=== PATIENT | female | born 1990 | race Caucasian/White ===

== ENCOUNTER 2017-07-18 23:16 | Emergency (ER) | payer BC, MEDICAID, OTHER ==
[2017-07-18] MEDS ORDERED: Albuterol/Ipratropium 3.0-0.5 MG/3 ML Neb Soln ONE (23:22)
[2017-07-18] MEDS ORDERED: Albuterol/Ipratropium 3.0-0.5 MG/3 ML Neb Soln NEB ONE (23:22)
[2017-07-18] MEDS ORDERED: Sodium Chloride 0.9% 2.5 ML Syringe FLUSH PRN (23:28)
[2017-07-18] MEDS ORDERED: Sodium Chloride 0.9% 10 ML Syringe FLUSH PRN (23:28)
[2017-07-18] MEDS ORDERED: methylPREDNISolone Sodium Succinate 125 MG/2 ML SDV IVPUSH ONE (23:28)
[2017-07-18] MEDS ORDERED: LORazepam 2 MG/ML MDV IVPUSH ONE (23:29)
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
[2017-07-18] MEDS ORDERED: Codeine/Promethazine 10-6.25 MG/5 ML Syrup 5 ML UD Cup ONE (23:57)
[2017-07-19 00:52] VITALS: BP 90/60
--- NOTE | 2017-07-19 13:16 | CR ---
EXAM DATE: 07/18/17 PATIENT'S AGE: 26 Patient: LUIS E LIN Facility: [place], [place] Site . Site : 1990 Study: XRay Chest [id number]/11/2018 12:05:41 AM Ordering Physician: Quinton Green Final Report: HISTORY: Cough and sick for about a week. Hemoptysis tonight. FINDINGS: PA and lateral chest radiographs compared 18 February 2016. The cardiac silhouette is normal. Pulmonary vasculature and williams are normal. No lobar consolidation or pleural effusion is seen. The bony structures are normal. IMPRESSION: No acute cardiopulmonary disease or infiltrate. Dictated by Edith Molina MD @ 07/19/2017 12:07:23 AM Dictated by: Edith Molina MD @ 07/19/2017 00:07:31 (Electronic Signature) Report Signed by Proxy. [email or web address]
[2017-07-19] MEDS ORDERED: Codeine/Promethazine 10-6.25 MG/5 ML Syrup 5 ML UD Cup PO ONE (23:27)
== END 2017-07-19 00:40 | disposition home or self-care (01) ==
LOC: MW.ED 23:16
DX: J20.9 Acute bronchitis, unspecified (principal); Z88.2 Allergy status to sulfonamides; F17.210 Nicotine dependence, cigarettes, uncomplicated
CPT/HCPCS: 71046; 87804; 94640; 96374; 96375; 99284; A9270; J2060; J2930; 99283

== ENCOUNTER 2018-01-01 14:08 | Emergency (ER) | payer BC ==
[2018-01-01] MEDS ORDERED: Sodium Chloride 0.9% 2.5 ML Syringe FLUSH PRN ×2 (14:28→14:29)
[2018-01-01] MEDS ORDERED: Sodium Chloride 0.9% 10 ML Syringe FLUSH PRN ×2 (14:28→14:29)
[2018-01-01] MEDS ORDERED: Ampicillin/Sulbactam Na 3 GM in Sodium Chloride 0.9% 100 ML IV ONE ×2 (14:28→15:15)
[2018-01-01] MEDS ORDERED: Rabies Vaccine (Avian) 2.5 Unit Inj Kit IM ONE ×2 (14:30→15:45)
[2018-01-01 14:34] VITALS: BP 135/85
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
[2018-01-01] MEDS ORDERED: Diphtheria,Pertussis(Acell),Tetanus Vaccine 0.5 ML Syringe IM ONE (15:03)
[2018-01-01] MEDS ORDERED: Rabies Immune Globulin PF 150 Units/ML 2 ML SDV IM ONE (15:11)
[2018-01-01] MEDS ORDERED: Rabies Immune Globulin PF 150 Units/ML 10 ML SDV IM ONE ×2 (15:18→15:45)
== END 2018-01-01 16:35 | disposition home or self-care (01) ==
LOC: MW.ED 14:08
DX: S61.253A Open bite of left middle finger without damage to nail, initial encounter (principal); L03.012 Cellulitis of left finger; F17.210 Nicotine dependence, cigarettes, uncomplicated; F32.9 Major depressive disorder, single episode, unspecified; W55.01XA Bitten by cat, initial encounter; Z88.2 Allergy status to sulfonamides; Z79.899 Other long term (current) drug therapy
CPT/HCPCS: 90375; 90471; 90675; 90715; 96365; 96372; 99283; J0295; J7030

== ENCOUNTER 2018-03-25 08:33 | Emergency (ER) | payer BC ==
[2018-03-25 08:48] VITALS: BP 140/86
[2018-03-25] MEDS ORDERED: Lidocaine 1% 10 ML MDV INJECT ONE (08:49)
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
== END 2018-03-25 09:47 | disposition home or self-care (01) ==
LOC: MW.ED 08:33
DX: S71.111A Laceration without foreign body, right thigh, initial encounter (principal); F17.210 Nicotine dependence, cigarettes, uncomplicated; Z88.2 Allergy status to sulfonamides; Z79.899 Other long term (current) drug therapy; W26.8XXA Contact with other sharp object(s), not elsewhere classified, initial encounter
CPT/HCPCS: 99283

== ENCOUNTER 2019-02-10 21:07 | Emergency (ER) | payer BC, OTHER ==
[2019-02-10] MEDS ORDERED: Ketorolac 60 MG/2 ML SDV IM ONE (21:08)
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
[2019-02-10 21:49] LABS: BLOOD UREA NITROGEN,BUN 18 mg/dL (7.0-18.0); CHLORIDE,CL 104 mmol/L (98-107); GLUCOSE RANDOM 108 mg/dL (74-106); SODIUM,NA 140 mmol/L (136-145)
--- NOTE | 2019-02-10 22:19 | CR ---
INDICATION: Chest pain and SOB. TECHNIQUE: PA and lateral. COMPARISON: None. FINDINGS: Lungs low in volume with crowded markings in the bases. No obvious infiltrate. No pleural effusion. Heart size and pulmonary vasculature within normal limits, allowing for the shallow inspiration. No significant bony abnormality. IMPRESSION: Negative chest, allowing for shallow inspiration. Dictated by Jose Gloria MD @ Feb 10 2019 10:17PM Signed by Dr. Jose Gloria @ Feb 10 2019 10:18PM
[2019-02-10 22:30] VITALS: BP 143/80; PULSE 73
== END 2019-02-10 22:05 | disposition home or self-care (01) ==
LOC: MW.ED 21:07
DX: M94.0 Chondrocostal junction syndrome [Tietze] (principal); Z88.2 Allergy status to sulfonamides
CPT/HCPCS: 36415; 71046; 80048; 85025; 96372; 99285; J1885; 93005; 99284